=== PATIENT | female | born 1990 | race Caucasian/White ===

== ENCOUNTER 2025-07-27 18:33 | Emergency (ER) | payer OTHER, BC, SELFPAY ==
[2025-07-27 18:42] VITALS: BP 143/95; PULSE 98; TEMP 37.1; O2SAT 99; BMI 39.0
--- OUTSIDE RECORDS SUMMARY | 2025-07-27 19:15 | XMS_ITS | Clinical Summary ---
Author Organization [facility] Address [id number] [address] [place] [address] Care Team Providers Care Liner Inserter Name Role Phone Melissa Espinoza MD Primary Care Provider +1- [phone] Allergies Active Allergy Reactions Criticality Noted Date Comments Cyproheptadine 07/16/2018 Generalized rash Cyproheptadine Hcl Other (See Comments) 014 Diphenhydramine Other (See Comments) High 03/09/2021 Egg Derived 08/14/2017 Egg Yolk 12/23/2021 Erythromycin Other (See Comments) 10/31/2014 Erythromycin Base 07/16/2018 Prednisone 07/16/2018 Rash Azithromycin 02/26/2018 Purple hives Medications acetaminophen (TYLENOL ORAL) Take by mouth. Active labetaloL (NORMODYNE) 200 mg tablet Take 1 tablet (200 mg total) by mouth once. Twice a day 12/15/19 21 Active busPIRone (BUSPAR) 15 mg tablet Take 1 tablet (15 mg total) by mouth in the morning and 1 tablet (15 mg total) before bedtime. 06/07/20 21 Active copper (PARAGARD) 380 square mm intrauterine device IUD 1 each by intrauterine route once. Active dextroamphetami ne-amphetamine (ADDERALL) 20 mg tablet Take 1 tablet (20 mg total) by mouth in the morning. 02/16/20 23 Active FLUoxetine (PROzac) 40 mg capsule Take 1 capsule (40 mg total) by mouth in the morning. 12/18/19 25 Active topiramate (TOPAMAX) 50 mg tabletIndicatio ns:Migraine with typical aura Take 1 tablet (50 mg total) by mouth in the morning and 1 tablet (50 mg total) before bedtime. 180 tablet 1 04/21/20 25 Active FLUoxetine (PROzac) 10 mg capsule 02/26/20 25 Active ubrogepant (UBRELVY) 100 mg tabletIndicatio ns:Migraine with typical aura Take one tablet at onset of severe headache. May repeat in two hours if needed. Limit 2/24hrs, limit 2/week and 8/month 9 tablet 3 05/05/20 25 Active aspirin 81 mgIndications:H emiplegic migraine without status migrainosus, not intractable TAKE 1 TABLET IN THE MORNING 90 tablet 3 05/12/20 25 Active MAGOX 400 mg (241.3 mg magnesium) tabletIndicatio ns:Migraine with typical aura,Hemiplegic migraine without status migrainosus, not intractable TAKE 1 TABLET IN THE MORNING 90 tablet 3 07/17/20 25 Active magnesium oxide (MAGOX) 400 mg tabletIndicatio ns:Migraine with typical aura,Hemiplegic migraine without status migrainosus, not intractable Take 1 tablet (400 mg total) by mouth in the morning. 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 Hemiplegic migraine 02/26/2018 TIA (transient ischemic attack) 02/26/2018 Encounters Date Type Department Care Team Description 07/11/2025 Refill [facility] [address] [place] [address] Anju Maldonado APRN-CRNP Migraine with typical aura; Hemiplegic migraine without status migrainosus, not intractable 05/20/2025 Telephone [facility] Department of [facility] [address] [address], [address] [place] [address] Rosario Carroll fax 05/12/2025 Refill [facility] [address] [place] [phone] Anju Maldonado APRN-SUPERVISOR TYPE DISK QUALITY CONTROL Hemiplegic migraine without status migrainosus, not intractable 05/05/2025 Refill [facility] [address] [place] [phone] Nay Bond MD Migraine with typical aura 05/04/2025 Refill [facility] [address] [place] [address] Nay Bond MD Migraine with typical aura 05/03/2025 Refill [facility] [address] [place] [address] Nay Bond MD Migraine with typical aura 04/30/2025 9:00 AM EDT Office Visit [facility] [address] [place] [phone] Andreina Marquez APRN-REDUCER Spinal stenosis of cervical region (Primary Dx); Radiculopathy, cervical region; Lumbar facet arthropathy 04/30/2025 8:32 AM EDT - 04/30/2025 11:59 PM EDT Hospital Encounter [facility] [address] [facility] [address] [place] [address] Neck pain; Low back pain, unspecified back pain laterality, unspecified chronicity, unspecified whether sciatica present Discharge Disposition: Home 04/29/2025 Travel from Last 3 Months Family History Medical History Relation Name Comments Asthma Brother Diabetes Father Heart disease Father Hyperlipidemia Father Hypertension Father Alzheimer's disease Maternal Grandmother Asthma Maternal Grandmother Cancer Mother Diabetes Mother Heart attack Paternal Grandfather Alzheimer's disease Paternal Grandmother Stroke Paternal Grandmother Relation Name Status Comments Brother Father Maternal Grandfather Alive Maternal Grandmother Mother Alive Paternal Grandfather Paternal Grandmother Social History Tobacco Use Types Packs/Day Years Used Date Smoking Tobacco: Never Smokeless Tobacco: Never Tobacco Cessation:Counseling Given: Not Answered Alcohol Use Standard Drinks/Week Comments No 0 (1 standard drink = 0.6 oz pur e alcohol) PHQ-2 Answer Date Recorded Total Score 0 04/21/2025 Childcare Answer Date Recorded Childcare Unknown 04/25/2019 Employment Answer Date Recorded Employment Unknown 04/25/2019 Hunger Screening Answer Date Recorded Within the past 12 months we worried whether our food would run out before we got money to buy more. Never True 04/30/2025 Within the past 12 months th e food we bought just didn't last and we didn't have money to get more. Never True 04/30/2025 Purpose - Life Answer Date Recorded Purpose and direction in life Unknown Comments No Sex and Gender Information Value Date Recorded Sex Assigned at Female 12/21/2021 9:02 PM EST Legal Sex Female 12:33 PM EDT Gender Identity Female 12/21/2021 9:02 PM EST Sexual Orientation Straight 12/21/2021 9: 02 PM EST Last Filed Vital Signs Vital Sign Reading Time Taken Comments Blood Pressure 143/95 04/30/2025 8:43 AM EDT Pulse 85 04/30/2025 8:43 AM EDT Temperature - - Respiratory Rate - - Oxygen Saturation - - Inhaled Oxygen Concentration - - Weight 99.8 kg (220 lb) 04/30/2025 8:43 AM EDT Height 160 cm (5' 2.99 ) 04/30/2025 8:43 AM EDT Body Mass Index 38.98 04/30/2025 8:43 AM EDT Plan of Treatment Upcoming Encounters Date Type Department Care Team (Late st Contact Info) Description 10/23/2025 9:00 AM EST Office Visit [facility] Department of [address] [place] [address] Zoya Elkins MD [address] [place] [address] [address] [place], [place] [address] Health Maintenance Due Date Last Done Comments Pap Smear 02/14/2012 COVID-19 Vaccine (2024- 6 season) 2025 02/01/2022, 03/13/2021, 02/20/2021 Influenza Vaccine 07/14/2025 10/19/2020 Adult BMI Follow Up Plan 04/21/2026 04/21/2025 Depression Screening 04/21/2026 04/21/2025 Adult BMI Screening 04/30/2026 04/30/2025 Tobacco Screening 04/30/2026 04/30/2025 DTaP,Tdap and Td Vaccines (3 - Td or Tdap) 03/11/2031 03/11/2021, 03/20/2019 Medical Devices Not on file Procedures Procedure Name Priority Date/Time Associated Diagnosis Comments XR SPINE LUMBAR 2 OR 3 VWS Routine 04/30/2025 8:38 AM EDT Low back pain, unspecified back pain laterality, unspecified chronicity, unspecified whether sciatica present XR SPINE CERVICAL 3 VWS OR LESS Routine 04/30/2025 8:38 AM EDT Neck pain from Last 3 Months Results * X-ray spine lumbar 2 or 3 views (04/30/2025 8:38 AM EDT) Anatomical Region Laterality Modality MSK, Neuro, Spine, L-spine N/A Compu andre Radiography 05/01/2025 6:51 AM EDT Narrative 05/01/2025 6:52 AM EDT Clinical history: Back pain Lumbar spine: 04/30/2025 COMPARISON: None FINDINGS: 2 views of the lumbar spine were performed. Evaluation is somewhat inhibited by body habitus. Vertebral shapes appear within normal limits with no focal abnormality. There are mild lumbar facet degenerative changes. No malalignment is evident. IMPRESSION: Degenerative findings with no focal abnormality evident radiographically. Finalized by Jeff Arteaga MD on 05/01/2025 6:52 AM Procedure Note Jeff Arteaga MD - 05/01/2025 Clinical history: Back pain Lumbar spine: 04/30/2025 COMPARISON: None FINDINGS: 2 views of the lumbar spine were performed. Evaluation is somewhatinhibited by body habitus. Vertebral shapes appear within normal limitswith no focal abnormality. There are mild lumbar facet degenerativechanges. No malalignment is evident. IMPRESSION: Degenerative findings with no focal abnormality evidentradiographically. Finalized by Jeff Arteaga MD on 05/01/2025 6:52 AM Andreina Marquez [facility] ORDERABLES Final Result * X-ray spine cervical 3 views or less (04/30/2025 8:38 AM EDT) Anatomical Region Laterality Modality MSK, Neuro, Spine, C-spine N/A Compu andre Radiography 05/01/2025 6:51 AM EDT Narrative 05/01/2025 6:51 AM EDT Clinical history: Neck pain Cervical spine: 04/30/2025 COMPARISON: 11/22/2024 FINDINGS: 2 views of the cervical spine were obtained. Cervical vertebral abnormal shape. There is mild loss of disc height at C5-C6. Facet alignment is anatomic. Prevertebral contours are within normal limits. IMPRESSION: Cervical spine degenerative changes. No focal abnormality evident radiographically. Finalized by Jeff Arteaga MD on 05/01/2025 6:51 AM Procedure Note Jeff Arteaga MD - 05/01/2025 Clinical history: Neck pain Cervical spine: 04/30/2025 COMPARISON: 11/22/2024 FINDINGS: 2 views of the cervical spine were obtained. Cervical vertebral abnormalshape. There is mild loss of disc height at C5-C6. Facet alignment isanatomic. Prevertebral contours are within normal limits. IMPRESSION: Cervical spine degenerative changes. No focal abnormality evidentradiographically. Finalized by Jeff Arteaga MD on 05/01/2025 6:51 AM Andreina Marquez [facility] [place] [facility] ORDERABLES Final Result from Last 3 Months Insurance ANTHEM Care Teams Liner Inserter Relationship Specialty Start Date End Date Melissa Espinoza MD [address] [place] [address] PCP - General Internal Medicine 12/23/21
--- OUTSIDE RECORDS SUMMARY | 2025-07-27 19:15 | XMS_ITS | Encounter Summary ---
Author Organization [facility] Address [id number] [address] [place] [address] Care Team Providers Care Restaurant Associate Name Role Phone Melissa Espinoza MD Primary Care Provider +1- [phone] Reason for Visit * Reason Comments Med Refill Encounter Details Date Type Department Care Team (Late st Contact Info) Description 05/04/2025 Refill [facility] [address] [place] [phone] Nay Bond MD [address] [place] [address] Migraine with typical aura Social History Tobacco Use Types Packs/Day Years Used Date Smoking Tobacco: Never Smokeless Tobacco: Never Alcohol Use Standard Drinks/Week Comments No 0 [...] Orientation Straight 12/21/2021 9: 02 PM EST documented as of this encounter Miscellaneous Notes * Telephone Encounter - Nay Bond MD - 05/04/2025 4:07 AM EDT Patient follows w/ Dr. Elkins now. Nay Bond MD * Telephone Encounter - Zoya Elkins MD - 05/04/2025 4:07 AM EDT Already sent in prescription. documented in this encounter Plan of Treatment Upcoming Encounters Date Type Department Care Team (Late st Contact Info) Description 10/23/2025 9:00 AM EST Office Visit [facility] Department of [address] [place] [phone] Zoya Elkins MD [address] [place] [address], [facility] [address] [place] [address] documented as of this encounter Visit Diagnoses Diagnosis Migraine with typical aura Migraine with aura, without mention of intractable migraine without mention of status migrainosus documented in this encounter Additional Health Concerns Assessment Noted Time PHQ-9 Depression Total Score: 0 04/21/20 25 8:12 AM EDT A Body Mass Index follow-up plan has been documented for the patient 04/21/2025 11:47 AM EDT documented as of this encounter Care Teams Restaurant Associate Relationship Specialty Start Date End Date Melissa Espinoza MD [address] [place] [address] PCP - General Internal Medicine 12/23/21 documented as of this encounter
--- OUTSIDE RECORDS SUMMARY | 2025-07-27 19:15 | XMS_ITS | Encounter Summary ---
Author Organization [facility] Address [id number] [address] [place] [address] Care Team Providers Care Gas Furnace Installer Name Role Phone Melissa Espinoza MD Primary Care Provider +1- [phone] Reason for Visit * Reason Comments Med Refill Encounter Details Date Type Department Care Team (Late st Contact Info) Description 07/11/2025 Refill [facility] [address] [place] [phone] Anju Maldonado, ZACH-AMINA [address] [place] [address] Migraine with typical aura; Hemiplegic migraine without status migrainosus, not intractable Social History Tobacco Use Types Packs/Day Years [...] encounter Miscellaneous Notes * Telephone Encounter - Nyasia Mckinley RN - 07/11/2025 8:58 PM EDT RN reviewed refill request for Mag ox. Dosage and directions verified in last office note. Prescription pended for physician to review and sign. Last appt: 04/21/2025 Next appt: 10/23/2025 Last refilled: 03/09/2025 Last prescription: 03/13/2024 documented in this encounter Plan of Treatment Upcoming Encounters Date Type Department Care Team (Late st Contact Info) Description 10/23/2025 9:00 AM EST [facility] Department of [address] [place] [address] Zoya Elkins MD [address] [place] [address] [address] [place] [address] documented as of this encounter Visit Diagnoses Diagnosis Migraine with typical aura Migraine with aura, without mention of intractable migraine without mention of status migrainosus Hemiplegic migraine without status migrainosus, not intractable documented in this encounter Additional Health Concerns Assessment Noted Time PHQ-9 Depression Total Score: 0 04/21/20 25 8:12 AM EDT A Body Mass Index follow-up plan has been documented for the patient 04/21/2025 11:47 AM EDT documented as of this encounter Care Teams Gas Furnace Installer Relationship Specialty Start Date End Date Melissa Espinoza MD [address] [place] [address] PCP - General Internal Medicine 12/23/21 documented as of this encounter
--- OUTSIDE RECORDS SUMMARY | 2025-07-27 19:15 | XMS_ITS | Encounter Summary ---
Author Organization [facility] Address [id number] [address] [place] [address] Care Team Providers Care Monument Carver Name Role Phone Melissa Espinoza MD Primary Care Provider +1- [phone] Encounter Details Date Type Department Care Team (Late st Contact Info) Description 04/22/2025 Orders Only [facility] [address] [place] [phone] Bell Cristina Neck pain (Primary Dx); Low back pain, unspecified back pain laterality, unspecified chronicity, unspecified whether sciatica present Social History Tobacco Use Types Packs/Day Years [...] got money to buy more. Never True 04/21/2025 Within the past 12 months th e food we bought just didn't last and we didn't have money to get more. Never True 04/21/2025 Purpose - Life Answer Date Recorded Purpose and direction in life Unknown Comments No Sex and Gender Information Value Date Recorded Sex Assigned at Female 12/21/2021 9:02 PM EST Legal Sex Female 12:33 PM EDT Gender Identity Female 12/21/2021 9:02 PM EST Sexual Orientation Straight 12/21/2021 9: 02 PM EST documented as of this encounter Plan of Treatment Upcoming Encounters Date Type Department Care Team (Late st Contact Info) Description 10/23/2025 9:00 AM EST Office Visit [facility] Department of [address] [place] [address] Zoya Elkins MD [address] [place] [address] [address] [place] [address] documented as of this encounter Visit Diagnoses Diagnosis Neck pain- Primary Cervicalgia Low back pain, unspecified back pain laterality, unspecified chronicity, unspecified whether sciatica present documented in this encounter Additional Health Concerns Assessment Noted Time PHQ-9 Depression Total Score: 0 04/21/20 25 8:12 AM EDT A Body Mass Index follow-up plan has been documented for the patient 04/21/2025 11:47 AM EDT documented as of this encounter Care Teams Monument Carver Relationship Specialty Start Date End Date Melissa Espinoza MD [address] [place] [address] PCP - General Internal Medicine 12/23/21 documented as of this encounter
--- OUTSIDE RECORDS SUMMARY | 2025-07-27 19:15 | XMS_ITS | Encounter Summary ---
Author Organization [facility] Address [id number] [address] [place] [address] Care Team Providers Care Spindle Maker Name Role Phone Melissa Espinoza MD Primary Care Provider +1- [phone] Reason for Visit * Reason Comments Med Refill Encounter Details Date Type Department Care Team (Late st Contact Info) Description 11/30/2022 Refill [facility] [address] [place] [phone] Nay Bond MD [address] [place] [address] Social History Tobacco Use Types Packs/Day Years Used Date Smoking Tobacco: Never Smokeless Tobacco: Never Alcohol Use Standard Drinks/Week Comments No 0 (1 standard drink = 0.6 oz pur e alcohol) PHQ-2 Answer Date Recorded Total Score 0 06/09/2021 Childcare Answer Date Recorded Childcare Unknown 04/25/2019 Employment Answer Date Recorded Employment Unknown 04/25/2019 Purpose - Life Answer Date Recorded Purpose [...] Telephone Encounter - Nay Bond MD - 11/30/2022 12:55 AM EST This patient needa a 1 year follow-up. I recommend seeing Jj Maldonado if able to do so. I will onlyrefill her scripts for 3 months. Thanks. Nay Bond MD documented in this encounter Plan of Treatment Upcoming Encounters Date Type Department Care Team (Late st Contact Info) Description 10/23/2025 9:00 AM EST [facility] Department of [address] [place] [phone] Zoya Elkins MD [address] [place] [address] [address] [place] [address] documented as of this encounter Visit Diagnoses Not on filedocumented in this encounter Additional Health Concerns Assessment Noted Time PHQ-9 Depression Total Score: 0 06/09/20 21 9:08 AM EDT documented as of this encounter Care Teams Spindle Maker Relationship Specialty Start Date End Date Melissa Espinoza MD [address] [place] [address] PCP - General Internal Medicine 12/23/21 documented as of this encounter
--- OUTSIDE RECORDS SUMMARY | 2025-07-27 19:15 | XMS_ITS | Clinical Summary ---
Author Organization [facility] Address [address] [facility] [address], [address] [place] [address] Care Team Providers Care Recycle Driver Name Role Phone Ozzie Banks DO Primary Care Provider Sivan luciano Allergies Active Allergy Reactions Criticality Noted Date Comments Azithromycin Rash,Other (See Comments) Low 02/22/20 13 Cyproheptadine Other (See Comments) 10/31/2014 Diphenhydramine Other (See Comments) High 03/09/2021 Egg-Derived Products 08/14/2017 Erythromycin Rash Low 02/21/2013 Erythromycin Base Other (See Comments) 10/31/20 14 Prednisone Other (See Comments) 10/31/2014 Medications vitamin (-S) 27-0.8 MG TABS Take 1 tablet by mouth daily. Active acetaminophen (TYLENOL) 500 MG tablet Take 500 mg by mouth every 6 hours as needed for Pain Active ferrous sulfate dried (SLOW RELEASE IRON) 160 (50 Fe) MG TBCR extended release tablet Slow Release Iron once daily Active folic acid (FOLVITE) 1 MG tablet Take 1 mg by mouth daily Active aspirin 81 MG EC tablet Take 81 mg by mouth daily Active enoxaparin (LOVENOX) 40 MG/0.4ML injection INJECT 40 MG UNDER THE SKIN DAILY 1 Active vitamin B-2 (RIBOFLAVIN) 100 MG TABS tablet Take 200 mg by mouth daily 1 Active promethazine (PHENERGAN) 25 MG tablet TAKE 1 TABLET BY MOUTH EVERY 6 HOURS NEEDED FOR NAUSEA OR VOMITING OR HEADACHE 1 Active amphetamine-dext roamphetamine (ADDERALL) 30 MG tablet Take 1 tablet by mouth Daily. 5 Active busPIRone (BUSPAR) 15 MG tablet Take 15 mg by mouth 2 times daily 5 Active Paragard Intrauterine Copper IUD 1 each by IntraUTERine route once Active FLUoxetine (PROZAC) 40 MG capsule Take 1 capsule by mouth daily 5 Active topiramate (TOPAMAX) 50 MG tablet Take 1 tablet by mouth in the morning and 1 tablet in the evening. 5 Active UBRELVY 100 MG TABS Take one tablet at onset of severe headache. May repeat in two hours if needed. 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 06/23/2025 Thrombophilia 06/23/2025 Migraine 02/11/2019 Anxiety 02/11/2019 History of depression 02/11/2019 Raynaud disease 02/11/2019 Obesity complicating 08/14/2017 Coagulation defect during 08/14/2017 Other current maternal condi tions classifiable elsewhere, antepartum 06/26/2017 Hx of preeclampsia, prior , currently p regnant 06/26/2017 Encounters Date Type Department Care Team Description 06/23/2025 1:45 PM EDT Office Visit [facility] Part of [address] [address] Go Loomis MD MTHFR (methylene THF reductase) deficiency and homocystinuria (Primary Dx); Thrombophilia 06/23/2025 Orders Only [facility] Part of [address] [address] Go Loomis MD from Last 3 Months Social History Tobacco Use Types Packs/Day Years Used Date Smoking Tobacco: Never Smokeless Tobacco: Never Alcohol Use Standard Drinks/Week Comments No 0 (1 standard drink = 0.6 oz pur e alcohol) Comments Unknown Sex and Gender Information Value Date Recorded Sex Assigned at Female 05/12/2022 2:24 AM EDT Legal Sex Female 7:04 AM EDT Gender Identity Female 05/12/2022 2:24 AM EDT Sexual Orientation Straight 05/12/2022 2: 24 AM EDT Last Filed Vital Signs Vital Sign Reading Time Taken Comments Blood Pressure 142/75 06/23/2025 1:51 PM EDT Pulse 105 06/23/2025 1:51 PM EDT Temperature 36.2 C (97.2 F) 06/23/2025 1:51 PM EDT Respiratory Rate 18 06/23/2025 1:51 PM EDT Oxygen Saturation 100% 02/27/2013 5:34 PM EDT Inhaled Oxygen Concentration - - Weight 100.7 kg (222 lb) 06/23/2025 1:51 PM EDT Height 160 cm (5' 3 ) 03/16/2021 8:35 AM EDT Body Mass Index 39.33 03/16/2021 8:35 AM EDT Plan of Treatment Health Maintenance Due Date Last Done Comments Depression Screen 2003 Varicella vaccine (1 of 2 - 13+ 2-dose series) 02/14/2004 HIV screen 2006 Hepatitis C screen 2009 DTaP/Tdap/Td vaccine (1 - Tdap) 2010 Hepatitis B vaccine (1 of 3 - 19+ 3-dose series) 2010 Pap smear 02/14/2012 Cervical cancer screen 2021 HPV (without or with Pap) 2021 Flu vaccine (#1) 06/13/2025 09/13/2013 COVID-19 Vaccine (2023-2 5 season) 2025 HPV vaccine (No Doses Required) Completed Hepatitis A vaccine Aged Out No longe r eligible based on patient's age to complete this topic Hib vaccine Aged Out No longer eligi ble based on patient's age to complete this topic Meningococcal (ACWY) vaccine Aged Out No longer eligible based on patient's age to complete this topic Meningococcal B vaccine Aged Out No l onger eligible based on patient's age to complete this topic Pneumococcal 0-49 years Vaccine Aged Out No longer eligible based on patient's age to complete this topic Polio vaccine Aged Out No longer elig ible based on patient's age to complete this topic Procedures Procedure Name Priority Date/Time Associated Diagnosis Comments CBC WITH AUTO DIFFERENTIAL Routine 06/20/2025 4:25 PM EDT from Last 3 Months Results * CBC with Auto Differential (06/20/2025 4:25 PM EDT) Blood BLOOD SPECIMEN / Unknown us Go Loomis MD HEMATOLOGY ORDERABLES Final Re sult from Last 3 Months Insurance [place] [employer] [place] Directives * Full Code (Latest Code Status on File) Date Activated Date Inactivated Comments 02/27/2013 5:32 PM 02/28/2013 10:02 AM Care Teams Recycle Driver Relationship Specialty Start Date End Date Ozzie Banks DO [address] [place] [address] PCP - General 02/21/13
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
[2025-07-27] MEDS: IBUPROFEN 600 MG TABLET PO (22:15)
== END 2025-07-27 22:27 | disposition home or self-care (01) ==
PROVIDERS: Emergency Provider Internal Medicine; PCP Internal Medicine
DX: S16.1XXA Strain of muscle, fascia and tendon at neck level, initial encounter (principal); S39.012A Strain of muscle, fascia and tendon of lower back, initial encounter; S29.012A Strain of muscle and tendon of back wall of thorax, initial encounter; V49.59XA Passenger injured in collision with other motor vehicles in traffic accident, initial encounter; Z98.890 Other specified postprocedural states
CPT/HCPCS: 72125; 72128; 72131; 76376; 99284